=== PATIENT | female | born 1945 | race Caucasian/White ===

== ENCOUNTER 2017-08-05 12:24 | Outpatient (CLI) | payer MEDICARE, OTHER ==
--- NOTE | 2017-08-05 14:23 | RAD ---
PA AND LATERAL CHEST: Date: 08/05/17 INDICATION: Shortness of breath. COMPARISON: Prior CT of the thorax dated 05/11/17. FINDINGS: There has been interval development of small right pleural effusion. Right infrahilar mass is not as well seen as on the comparison CT examination. Reticular nodularity within the right upper lobe persi sts. Chronic lung changes are similar. Cardiomegaly persists. There is multilevel spondylosis of the thoracic spine. There are prominent vascular calcifications involving the thoracic aorta. IMPRESSION: 1. Right lower lobe lung mass better detailed on CT exam dated 05/11/17. 2. Interval development of small right pleural effusion. 3. Persistent reticular nodularity within the right upper lobe. 4. Severe emphysema. 5. Stable cardiomegaly. POS: [facility]
== END 2017-08-05 12:25 | disposition home or self-care (01) ==
LOC: RAD 12:24
PROVIDERS: ATTEND Internal Medicine Medical Oncology
DX: R06.02 Shortness of breath (principal); J43.9 Emphysema, unspecified; J90 Pleural effusion, not elsewhere classified; I51.7 Cardiomegaly; R91.8 Other nonspecific abnormal finding of lung field
CPT/HCPCS: 71020; 80053; 82248; 83615; 84100; 84436; 84443; 84550

== ENCOUNTER 2017-09-14 10:34 | Emergency (ER) | payer MEDICARE, OTHER ==
[~2017-09-14 10:34] MED LIST: ISOVUE-370 76%-LOCM 1 ML ONE
[2017-09-14] MEDS ORDERED: Ondansetron ODT 4 MG TAB ONE ×2 (11:42→16:05)
[2017-09-14 11:59] LABS: #Eosinphils 0.1 thou/uL (0.0-0.7); #Lymphocytes 1.5 thou/uL (1.20-3.40); #Neutrophils 9.9 thou/uL (1.40-6.50); %Basophils 0.3 % (0.0-1.0); %Eosinophils 0.6 % (0.0-10.0); %Lymphocytes 11.8 % (21.0-51.0); %Monocytes 8.1 % (0.0-10.0); %Neutrophils 79.4 % (42.0-75.0); Hemoglobin 13.2 g/dL (12.0-16.0); Mean Corpuscular HGB CONC 32.8 g/dL (32.0-36.0); Mean Corpuscular Hemoglobin 30.5 pg (27.0-31.0); Mean Corpuscular Volume 93.2 fl (81.0-99.0); Mean Platelet Volume 7.1 fL (7.4-10.4); Platelet Count 266 thou/uL (130-400); Red Blood Cell (RBC) Count 4.34 mill/uL (4.20-5.40); White Blood Cell (WBC) Count 12.4 thou/uL (4.8-10.8)
[2017-09-14 12:24] LABS: ALT (SGPT) 15 U/L (8-55); AST (SGOT) 13 U/L (5-34); Albumin 3.3 g/dL (3.4-4.8); Alkaline Phosphatase 81 U/L (40-150); Anion Gap 15 mmol/L (10-20); BUN (Urea Nitrogen) 25 mg/dL (9.8-20.1); Bilirubin, Total 0.6 mg/dL (0.2-1.2); Calc. Creatinine Clearance 0 mL/min (70-130); Calcium 10.4 mg/dL (7.8-10.44); Carbon Dioxide 28 mmol/L (23-31); Chloride 93 mmol/L (98-107); Estimated GFR-MDRD Greater than 90; Glucose 93 mg/dL (83-110); Potassium 4.1 mmol/L (3.5-5.1); Protein, Total 6.3 g/dL (6.0-8.3); Sodium 132 mmol/L (136-145)
[2017-09-14 12:52] LABS: Bilirubin Negative (Negative); Blood, Urine Negative (Negative); Clarity CLOUDY (Clear); Glucose, Urine (Dipstick) Negative (Negative); Leukocyte Small (Negative); Nitrite Negative (Negative); Protein, Urine (Dipstick) Negative (Neg-Trace); Specific Gravity, Urine 1.023 (1.002-1.036); pH, Urine 7.5 (5.0-9.0)
[2017-09-14 12:58] LABS: Bacteria/HPF None Seen HPF (None Seen); Hyaline Casts/LPF 0-3 HYALINE CAST LPF (0-3 Hyaline); Squamous Epithelial 0-3 HPF (0-3); WBC/HPF 0-3 HPF (0-3)
--- NOTE | 2017-09-14 13:08 | RAD ---
2 VIEWS CHEST: Date: 09/14/17 COMPARISON: 08/05/17. HISTORY: Nausea and vomiting. FINDINGS: New nodular densities overlie the mid left lung zone, the left lung base, and the mid right lung zone , suspicious for numerous pulmonary nodules. There is dense opacity in the right lung base, primarily medially, worsened since the prior examination, suggesting acute on chronic pulmonary parenchymal op acity. No pneumothorax is seen. IMPRESSION: Findings suggesting interval development of bilateral pulmonary nodules. Chest CT is advised as this is suspicious for metastatic disease. Increased density has worsened within the right lung base sugge sting acute on chronic opacity which may signify infectious pneumonitis or aspiration. CODE T. POS: [facility]
--- NOTE | 2017-09-14 15:21 | CT ---
CT THORAX WITH IV CONTRAST: Date: 09-14-17 History: Nausea, vomiting, headache since this morning. Cough and wheezing. History of tobacco smokin g as well as history of lung cancer and recent metastatic disease to the brain. Comparison: 05-11-17 FINDINGS: Previously described mass in the medial aspect of the right lower lobe is again present, but this mas s has enlarged, previously measuring 4 cm x 2.4 cm and now measures 5.8 cm x 4.8 cm with low density area accentuates, suggesting necrosis. Previously noted area of consolidation at the right lung base with associated bronchiectasis now demonstrates a consolidated mass like area which is inferior to th e larger right infrahilar mass. This area now demonstrates no air bronchograms and there are multiple hypodense cystic areas present within this area. Findings may be related extension of neoplastic pro cess. This consolidated area of lung measures 9.3 cm x 7.5 cm. There has been interval increase in size of bilateral pulmonary nodules with interval development of multiple pulmonary nodules bilaterally. Largest pulmonary nodule at the posterior left lung base bravo ures 1.6 cm with largest pulmonary nodule in the right lower lobe measuring 1.5 cm. There has been interval enlargement of mediastinal lymph nodes which demonstrate low density areas ce ntrally suggesting necrosis. Previously noted left paratracheal/AP window lymph node measuring 1.5 cm on the prior study now measures 3.3 cm x 2.9 cm. Subcarinal area of decreased attenuation measures 2 cm in short axis dimension with area of decreased attenuation centrally suggesting necrosis. Vascular calcifications seen in the coronary arteries as well as involving the thoracic aorta. Cholelithiasis is again present. There is now a left adrenal heterogeneously enhancing nodule measuring 2.2 cm with suggestion of a ve ry small nodule now present involving the medial limb of the right adrenal gland measuring 1.2 cm, li alex related to metastatic lesions. Again noted is partial visualization of exophytic inferior pole large right renal cyst. No lytic or sclerotic osseous metastatic lesions are appreciated on this exam. IMPRESSION: 1. Worsening metastatic disease with interval enlargement of a mass in the medial aspect of the right lower lobe demonstrating a low density areas centrally suggesting necrosis. Just inferior to this re gion, the previously noted area of consolidation and bronchiectasis now demonstrates a more mass like appearance with associated low density cystic appearing areas which may be related to neoplastic inv olvement. Post obstructive infectious process with areas of necrosis is also a possibility. 2. Multiple bilateral pulmonary nodules which have increased in size and number. 3. Interval enlargement of necrotic mediastinal lymph nodes. 4. Interval development of metastatic bilateral adrenal nodules. POS: [facility]
== END 2017-09-14 16:00 | disposition home or self-care (01) ==
LOC: ERS 10:34
DX: E86.0 Dehydration (principal); J98.11 Atelectasis; I10 Essential (primary) hypertension; C34.90 Malignant neoplasm of unspecified part of unspecified bronchus or lung; C79.31 Secondary malignant neoplasm of brain; Z87.891 Personal history of nicotine dependence
CPT/HCPCS: 36415; 71046; 71260; 80053; 81003; 81015; 85025; 87040; 87804; 96360; Q0162

== ENCOUNTER 2017-09-16 09:45 | Outpatient (CLI) | payer MEDICARE, OTHER ==
--- NOTE | 2017-09-16 12:11 | MRI ---
MRI BRAIN WITH AND WITHOUT CONTRAST: DATE: 09/16/17 HISTORY: 72-year-old female with right upper lobe lung cancer, with metastatic disease, including brain metast asis. C79.31. C34.31. COMPARISON: None. TECHNIQUE: Multiple sequences obtained in axial, sagittal, and coronal planes; pre and post IV injection of gado linium-based contrast agent: 14 mL MultiHance. FINDINGS: There is an approximately 2 x 1 x 2.5 cm heterogeneously enhancing, mixed signal intensity, intraosse ous lesion of the right frontal bone representing an osseous metastasis. There are multiple enhancing intraaxial metastatic lesions. The largest is an approximately 4.0 x 4.5 x 2.5 cm mass in the left cerebellar hemisphere causing surrounding vasogenic edema, and architectur al distortion, effacing the left cerebellar folia, displacing the fourth ventricle to the right and n arrowing it, and narrowing the aqueduct of Sylvius, and distorting and causing vasogenic edema of the left middle cerebellar peduncle (brachium pontis). The mass has mixed, heterogeneous signal, consist ing of solid portions with enhancement, cystic nonenhancing regions, and an approximately 1 cm focus of hemorrhage which appears to be acute (several hours to 3 days old; deoxyhemoglobin; axial image 8 of 27, series 4. There is a 0.8 x 0.6 cm solid enhancing metastatic lesion at the anterior inferior portion of the rig ht cerebellar hemisphere. There is an approximately 1.5 x 0.8 cm heterogeneously enhancing metastatic lesion in the inferior portion of the left cerebellar hemisphere, medial and inferior to the largest mass described above. Supratentorially, there is a total of at least 7 metastatic lesions. The second largest metastatic ma ss (after the large left cerebellar mass) is a predominantly cystic, rim enhancing, 3 x 2 x 3 cm mass in the left occipital lobe, with surrounding vasogenic edema, effacing the occipital horn of the lef t lateral ventricle. The T2 hyperintensity follows anteriorly along the narrowed trigone of the left lateral ventricle also, but without enhancement in that region. The next largest supratentorial lesion is an approximately 0.8 cm metastatic deposit located in the l eft periventricular white matter/body of left caudate nucleus. Another similar size ring enhancing le isael is located at the right suprasylvian lateral right frontal lobe measuring approximately 0.6 x 0. 7 cm. The smallest lesions are approximately 0.2 cm, one at the left middle frontal gyrus near the ve rtex, and the other in the contralateral right middle frontal gyrus. There is no obstructive hydrocephalus. No subfalcine herniation (midline shift). No extra-axial fluid collection. There is distortion of the oscar by the large left cerebellar mass, but no significant ef facement of the basal cisterns. IMPRESSION: 1. Multiple brain metastases. 2. The largest mass is in the left cerebellar hemisphere causing mass effect. It has a small amount of internal hemorrhage. 3. The largest of the supratentorial masses is in the left occipital lobe. 4. The other supratentorial, cerebral metastatic lesions are small and tiny. 5. Right frontal bone osseous skull metastasis. DEBRA Sandoval POS: [facility]
== END 2017-09-16 09:46 | disposition home or self-care (01) ==
LOC: MRI 09:45
PROVIDERS: ATTEND Radiology Radiation Oncology
DX: C79.31 Secondary malignant neoplasm of brain (principal); C34.31 Malignant neoplasm of lower lobe, right bronchus or lung; C79.51 Secondary malignant neoplasm of bone
CPT/HCPCS: 70553

== ENCOUNTER 2017-09-22 12:39 | Emergency (ER) | payer MEDICARE, OTHER ==
--- NOTE | 2017-09-22 14:22 | RAD ---
LEFT KNEE FOUR VIEWS: History: Fall. Left knee injury. FINDINGS: Tricompartmental osteophytosis is present. No acute fracture, dislocation, or fluid distention in the joint capsule. There is calcification over the arterial structures. IMPRESSION: 1. Mild osteoarthritic changes left knee. 2. Atherosclerosis. POS: [facility]
== END 2017-09-22 14:25 | disposition home or self-care (01) ==
LOC: ERS 12:39
DX: S80.212A Abrasion, left knee, initial encounter (principal); I10 Essential (primary) hypertension; Z87.891 Personal history of nicotine dependence; Z79.899 Other long term (current) drug therapy; W19.XXXA Unspecified fall, initial encounter
CPT/HCPCS: 93005; 96360